=== PATIENT | female | born 1970 | race Two or more races ===

== ENCOUNTER → 2022-10-30 | Outpatient (CLI) | payer MEDICAID ==
[2022-10-30 13:58] LABS: Albumin 3.6 g/dL (3.4-5.0)
[2022-10-30 14:02] LABS: Bilirubin, Direct 0.1 mg/dL (0-0.2); Bilirubin, Total 0.4 mg/dL (0.2-1.0); Total Protein 7.7 g/dL (6.4-8.2)
== END | disposition home or self-care (01) ==
LOC: LAB 13:12
PROVIDERS: ATTEND Podiatrist
DX: B35.1 Tinea unguium (principal)
CPT/HCPCS: 36415; 80076